=== PATIENT | female | born 1985 | race Asian ===

== ENCOUNTER 2021-02-11 04:26 | Day surgery (SDC) | payer BC, OTHER ==
[2021-02-09 12:42] VITALS: BMI 23.4
[2021-02-11] MEDS ORDERED: IBUPROFEN 400 MG TABLET (FP) PO PRN (11:48)
[2021-02-11] MEDS ORDERED: ACETAMINOPHEN 325 MG TABLET (FP) PO PRN (11:48)
[2021-02-11] MEDS ORDERED: oxyCODONE HCL 5 MG TABLET PO PRN (11:48)
[2021-02-11] MEDS ORDERED: ONDANSETRON 4 MG/2 ML VIAL IVPUSH PRN (11:49)
[2021-02-11] MEDS ORDERED: MIDAZOLAM HCL 2 MG/2 ML SINGLE DOSE VIAL ONE (12:03)
[2021-02-11] MEDS ORDERED: LIDOCAINE HCL/PF 2% SDV 5ML VIAL ONE (12:03)
[2021-02-11] MEDS ORDERED: PROPOFOL 20 ML ONE (12:03)
[2021-02-11] MEDS ORDERED: DEXAMETHASONE SOD PHOSPHATE 4 MG/1 ML VIAL ONE (12:26)
[2021-02-11] MEDS ORDERED: KETOROLAC TROMETHAMINE 30 MG/1 ML VIAL IM PRN (12:51)
[2021-02-11] MEDS ORDERED: LACTATED RINGERS SOLUTION 1,000 ML IV SCH (13:00)
[2021-02-11] MEDS ORDERED: KETOROLAC TROMETHAMINE 30 MG/1 ML VIAL IVPUSH PRN ×2 (13:27→13:28)
[2021-02-11 15:17] VITALS: BP 145/88; PULSE 96; TEMP 98.6
== END 2021-02-11 15:35 | disposition home or self-care (01) ==
LOC: JASU-SURG 04:26
PROVIDERS: ATTEND Obstetrics & Gynecology
PROC: 0UBC7ZX Excision of Cervix, Via Natural or Artificial Opening, Diagnostic (ICD-10-PCS; principal; 2021-02-11 12:00)
DX: N87.0 Mild cervical dysplasia (principal)
CPT/HCPCS: 81025; 86850; 86900; 86901; 88305-TC; 88307-TC; 94760